=== PATIENT | male | born 1950 | race African-American/Black ===

== ENCOUNTER 2017-06-15 09:21 | Emergency (ER) | payer OTHER ==
[~2017-06-15] VITALS: Ht 185.4 cm; Wt 93.0 kg
--- NOTE | ~2017-06-15 | CR230 ---
[facility] A Service of [facility] RADIOLOGY TEXT RESULTS PATIENT: YOLANDA SEAY LOCATION: CFTX : 54 UNIT #: [id number] AGE: [address]: Donavan Bowman SEX: M ORDER DR: [id number] [facility] [address] [place], [place] [address] [id number] E MR#: [id number] Acc #: [id number] NAME: YOLANDA SEAY : 1950 SEX: M STUDY DATE/TIME: 06/15/2017 11:12 UNIT: [facility] ROOM: STUDY DESCRIPTION: CR Shoulder Min 2 View Rt Attending Physician: Donavan Bowman R.N. Ordering Physician: Donavan Bowman R.N. Primary Care Physician: Kaity Bray MEDICAL IMAGING REPORT This report is preliminary unless electronic signature is present EXAM Right shoulder, 06/15/2017, 1112 hours. CLINICAL HISTORY Right shoulder pain with limited range of motion since 05/24/2017. No acute trauma but patient uses a cane with right hand when walking. COMPARISON 09/12/2007 FINDINGS AP views in internal and external patient and a scapula Y-view demonstrate no fracture or dislocation. There is trace spurring at the glenohumeral joint and acromioclavicular joint. There is sclerotic change at the greater tuberosity of the humerus at the rotator cuff insertion suggesting chronic rotator cuff change. IMPRESSION 1. No fracture, dislocation, or soft tissue calcification. 2. Trace spurring in the glenohumeral joint and acromioclavicular joint. 3. There is sclerotic change at the greater tuberosity at the rotator cuff insertion site suggesting chronic rotator cuff change. Dictated by... Linda Shannon M.D. THIS IS AN ELECTRONICALLY VERIFIED REPORT Linda Shannon M.D. at 06/15/2017 2:34 PM PATEL/jefferson TD: 06/15/2017 14:15 [facility] A Service of [facility] RADIOLOGY TEXT RESULTS PATIENT: YOLANDA SEAY LOCATION: [facility] : 54 UNIT #: [id number] AGE: [address]: Donavan Bowman SEX: M ORDER DR: ADARSH #: [id number] MEDICAL IMAGING REPORT Page 1 of 1 COPY
[~2017-06-15 09:21] MED LIST: ALBUTEROL17 GM; ATENOLOL PO; FOLIC ACID PO; LISINOPRIL PO; NITROGYLCERIN; PROTONIX PO; THIAMINE HCL100 MG PO
== END 2017-06-15 12:02 | disposition home or self-care (01) ==
LOC: CED 09:21 → CFTX 09:21
DX: M75.91 Shoulder lesion, unspecified, right shoulder (principal); J45.909 Unspecified asthma, uncomplicated; I10 Essential (primary) hypertension; F17.210 Nicotine dependence, cigarettes, uncomplicated; Z86.73 Personal history of transient ischemic attack (TIA), and cerebral infarction without residual deficits; Z79.899 Other long term (current) drug therapy; Z88.5 Allergy status to narcotic agent; Z88.6 Allergy status to analgesic agent
CPT/HCPCS: 73030; 99283